=== PATIENT | female | born 1970 | race Caucasian/White ===

== ENCOUNTER → 2016-10-08 | Outpatient (CLI) | payer OTHER ==
--- NOTE | 2016-10-08 16:07 | RAD ---
LUMBAR SPINE RADIOGRAPHS CLINICAL HISTORY: 45-year-old female with low back pain and radicular symptoms. COMPARISON: None. FINDINGS: The most caudad, fully-formed intervertebral disc will be labeled L5-S1 for the purpose of this dictation. Multiple views of the lumbar spine were obtained. There are 5 nonrib-bearing lumbar type vertebral bodies. Straightening of lumbar lordosis as imaged. Vertebral body heights are maint ained. Significant loss of joint space L5-S1 with endplate sclerosis. There is multilevel facet art hropathy from L3-S1. No acute fracture or malalignment. There is no sacroiliac diastasis. IMPRESSION: 1. Mild multilevel degenerative changes described, recommend MR lumbar spine. 2. No compression fracture deformity or malalignment on screening lumbar spine radiographs. Reported By:
--- NOTE | 2016-10-08 16:14 | RAD ---
THORACIC SPINE RADIOGRAPHS CLINICAL HISTORY: 45-year-old female with upper back pain. COMPARISON: None. FINDINGS: 2 views of the thoracic spine were obtained. No acute fracture or malalignment. The cervic othoracic junction is visualized on frontal radiographs only. Considering the limitations, vertebral body height and alignment are maintained. IMPRESSION: No compression deformity or malalignment on screening thoracic spine radiographs. Reported By:
== END | disposition home or self-care (01) | DRG 552 ==
LOC: RAD 14:07
PROVIDERS: ATTEND Nurse Practitioner Family
DX: M54.17 Radiculopathy, lumbosacral region (principal); M54.6 Pain in thoracic spine
CPT/HCPCS: 72072; 72110

== ENCOUNTER → 2016-10-23 | Outpatient (CLI) | payer OTHER ==
--- NOTE | 2016-10-23 10:51 | MRI ---
MRI of lumbar spine without contrast Indication: Lower back pain Comparison:None available Technique: Multiplanar multi-sequence MRI of the lumbar spine was obtained. Sagittal T1, sagittal T 2, and stir weighted images, axial T1, and axial T2 images were obtained. Findings: Lumbar spine demonstrates normal alignment without spondylolisthesis. There is no localizing bone ma rrow signal abnormality within the lumbar spine. There is moderate disc space loss and disk desiccat ion at L5-S1. Additionally there is a tiny increased STIR and T2 signal within the right posterolate ral disc bulge at L4-5 noted on sagittal image 5 and axial image 30 consistent a small annular tear /fissure. No prevertebral or paraspinal soft tissue swelling or fluid collection. The conus has a no rmal termination. Limited visualization of the abdomen and pelvis demonstrates no acute inflammatory process. At T12-L1: Unremarkable At L1-L2: Unremarkable At L2-3: Unremarkable At L3-4: the aside for fluid within the facet joints consistent with mild synovitis and facet arthro maria ines no disc bulge, spinal canal or neural foraminal stenosis At L4-5: Broad-based disc bulge with mild bilateral facet arthropathy causes no spinal canal stenosi s. There is mild to moderate right-sided neural foraminal stenosis. At L5-S1: Broad-based disc bulge with mild facet arthropathy causes mild spinal canal stenosis with moderate mass effect on the right lateral recess and transiting right S1 nerve root. There is mild t o moderate left and moderate right-sided neural foraminal stenosis. IMPRESSION: Multilevel discogenic degenerative change and facet arthropathy causing varying degrees of spinal ca nal and neural foraminal stenosis as described above. Linear increased STIR signal within the right posterolateral disc bulge at L4-5 consistent with an a nnular tear/fissure. Reported By:
== END | disposition home or self-care (01) ==
LOC: RAD 08:33
PROVIDERS: ATTEND Nurse Practitioner Family
DX: M54.17 Radiculopathy, lumbosacral region (principal); M51.26 Other intervertebral disc displacement, lumbar region; M51.36 Other intervertebral disc degeneration, lumbar region; R93.7 Abnormal findings on diagnostic imaging of other parts of musculoskeletal system
CPT/HCPCS: 72148